=== PATIENT | male | born 1930 | race Two or more races ===

== ENCOUNTER 2018-03-14 15:33 | Inpatient (IN) | payer MEDICARE, MEDICAID ==
[~2018-03-14] VITALS: Ht 175.3 cm; Wt 67.6 kg
[2018-03-14] MEDS ORDERED: BUSP5TAB3 PO (15:53)
[2018-03-14] MEDS ORDERED: LORA1TAB PO (15:53)
--- NOTE | 2018-03-14 16:01 | NUR ---
PT IS IN ROOM #2A, WAITING FOR DR YOON EVALUATION.
[2018-03-14 16:41] LABS: *BLOOD, URINE NEGATIVE (NEGATIVE); *CLARITY,URINE CLEAR (CLEAR); *COLOR,URINE YELLOW (YELLOW); *KETONES,URINE TRACE (NEGATIVE); *PROTEIN,URINE NEGATIVE (NEGATIVE); LEUKOCYTE ESTERASE ,URINE NEGATIVE (NEGATIVE); NITRITE, URINE NEGATIVE (NEGATIVE); PH,URINE 5.5 (5.0-8.0); UGLUCOSE NEGATIVE (NEGATIVE)
[2018-03-14 16:45] LABS: EOSINOPHILS # (AUTO) 0.2 K/uL (0.0-0.7); EOSINOPHILS % (AUTO) 5.2 % (0.0-7.0); HEMATOCRIT 40.4 % (36.7-47.1); HEMOGLOBIN 13.1 g/dL (12.5-16.3); LYMPHOCYTES # (AUTO) 1.1 K/uL (20.0-40.0); LYMPHOCYTES % (AUTO) 24.9 % (20.5-51.5); MEAN CORPUSCULAR HEMOGLOBIN 28.1 uug (23.8-33.4); MEAN CORPUSCULAR HGB CONC 33 g/dL (32.5-36.3); MEAN CORPUSCULAR VOLUME 86.5 fL (73.0-96.2); MONOCYTES # (AUTO) 0.6 K/uL (2.0-10.0); MONOCYTES % (AUTO) 14.2 % (0.0-11.0); NEUTROPHILS # (AUTO) 2.3 K/uL (1.8-8.9); NEUTROPHILS % (AUTO) 54.7 % (38.5-71.5); PLATELET COUNT (AUTO) 128 K/uL (152-348); RED BLOOD CELL COUNT(AUTO) 4.67 MIL/uL (4.06-5.63); WHITE BLOOD COUNT (AUTO) 4.2 K/uL (3.6-10.2)
--- NOTE | 2018-03-14 16:45 | NUR ---
Call placed to Karl Caputo LCSW, for PET evaluation. ETA 60 min.
[2018-03-14 16:52] LABS: *BILIRUBIN,URIN 1+ (NEGATIVE)
[2018-03-14 16:55] LABS: *AMPHETAMINE, URINE NEGATIVE (NEGATIVE); *BARBITURATE, URINE NEGATIVE (NEGATIVE); *CANNABINOID, URINE NEGATIVE (NEGATIVE); *COCCAINE, URINE NEGATIVE (NEGATIVE); *OPIATE, URINE NEGATIVE (NEGATIVE); *PHENCYCLIDINE SCREEN,URINE NEGATIVE (NEGATIVE); BACTERIA,URINE 0 /HPF (NONE SEEN); MUCUS,URINE MODERATE /LPF (0-FEW); SQUAMOUS EPITHELIAL CELL,UR NONE SEEN /HPF (NONE SEEN); WBC,URINE 0-3 /HPF (0-3)
[2018-03-14 16:59] LABS: CARBON DIOXIDE 21 mmol/L (21-32); CHLORIDE 108 mmol/L (98-107); CREATININE 0.8 mg/dL (0.6-1.3); ETHANOL < 3 MG/DL (0-0); GLUCOSE 110 mg/dL (74-106); POTASSIUM 4.3 mmol/L (3.5-5.1); UREA NITROGEN, BLOOD 17 mg/dL (7-18)
[2018-03-14 17:05] LABS: ALANINE AMINOTRANSFERASE 30 U/L (16-63); ALKALINE PHOSPHATASE 132 U/L (50-136); ASPARTATE AMINOTRANSFERASE 28 U/L (15-37); BILIRUBIN,DIRECT 0.2 mg/dL (0.0-0.2); BILIRUBIN,TOTAL 0.5 mg/dL (0.2-1.0); TOTAL PROTEIN, SERUM 6.8 g/dL (6.4-8.2)
[2018-03-14 17:08] LABS: ACETAMINOPHEN < 2.0 ug/mL (10-30)
[2018-03-14] MEDS ORDERED: OLANZAPINE 5 MG TABLET PO ONE (17:15)
[2018-03-14] MEDS ORDERED: OLANZAPINE 5 MG TABLET ONE (17:35)
--- NOTE | 2018-03-14 18:21 | NUR ---
JOSÉ LUIS MORROW EVALUATED THE PT. PT IS ON HOLD A GRAVELY DISABLED.
--- NOTE | 2018-03-14 18:22 | NUR ---
REPORT WAS GIVEN TO RN MHU. PT WAS TRANSFERED TO ROOM #140A,
[2018-03-14 20:00] VITALS: BP 117/65
[2018-03-14] MEDS ORDERED: MAG HYDROX/AL HYDROX/SIMETH 30 ML LIQUID UDC PO PRN (21:00)
[2018-03-14] MEDS ORDERED: MAGNESIUM HYDROXIDE 30 ML LIQUID UDC PO PRN (21:00)
--- NOTE | 2018-03-14 22:00 | NUR ---
received to care, from the emergency room, on a 72 hour hold for gravely disabled, a transfer from [facility]. according to the hold, he was attempting to elope from his facility, and when staff attempted to redirect his behavior, he became agitated and combative. it also stated that he believed he was in a shoe store, when he was in the emergency room, and believes he is still living in his home where he lived for 45 years, although he has been at the [facility] and care, since last november. upon arrival, he was confused and disorganized. unable to provide information. his niece, ann-marie was helpful with interview. he was placed in bed at 2200. as of now, he remains awake. monitored closely for safety.
--- NOTE | 2018-03-14 23:23 | NUR ---
pt remains awake, and restless. assisted to bathroom multiple times. attempting to climb out of bed. difficult to redirect. bed alarm on, for safety. PRN restoril, given for insomnia.
[2018-03-14] MEDS: TEMAZEPAM 7.5 MG CAPSULE PO PRN (23:29)
[2018-03-15] MEDS: LORAZEPAM 1 MG TABLET PO PRN ×2 (01:32→09:47)
--- NOTE | 2018-03-15 01:32 | NUR ---
remains confused, restless, and agitated. continually tries to climb out of bed. assisted up in jonel chair for safety, and placed at nurses station, for monitoring. PRN ativan was given, at this time.
--- NOTE | 2018-03-15 06:00 | NUR ---
slept 1.0 hours. remains awake. appears restless, at times, but is more directable. no distress noted. will continue to monitor closely.
[2018-03-15 07:30] VITALS: BP 138/57
[2018-03-15] MEDS: ACETAMINOPHEN 325 MG TABLET PO PRN (10:09)
[2018-03-15] MEDS ORDERED: LORAZEPAM 2 MG/1 ML VIAL IM ONE (11:45)
[2018-03-15] MEDS ORDERED: HALOPERIDOL LACTATE 5 MG/1 ML VIAL IM ONE (11:45)
[2018-03-15 15:00] VITALS: BP 128/83
--- NOTE | 2018-03-15 15:24 | NUR ---
Initial Discharge Instructions: Patient currently resides at [facility] [[facility] [address] [place] [address]; [phone]]. Spoke with patient's niece, Lolis ([phone]) who reports she would like to collaborate with the MD regarding appropriate discharge disposition for the patient. SW will continue to speak with the pt, family, and MD regarding appropriate discharge plans. SW will form a safe and proper discharge plan.
[2018-03-15] MEDS: risperiDONE 0.5 MG TABLET PO SCH (21:00)
[2018-03-15] MEDS: RIVASTIGMINE TARTRATE 1.5 MG CAPSULE PO SCH (21:00)
[2018-03-15] MEDS: DIVALPROEX 250 MG TABLET.DR PO SCH (21:00)
[2018-03-15] MEDS ORDERED: HALOPERIDOL LACTATE 5 MG/1 ML VIAL IM STA (21:31)
[2018-03-15] MEDS ORDERED: LORAZEPAM 2 MG/1 ML VIAL IM STA (21:31)
--- NOTE | 2018-03-15 22:00 | NUR ---
received to care, lying in bed, asleep, no distress noted. 1;1 sitter at side, for safety. woke up at 2129, attempting to climb out of bed, striking out at staff, when redirected. he refused all medications. continued to be combative, when redirected. IM haldol 2 mg/ativan 1 mg was given at 2151, per MD orders. as of 2199, he remains agitated, up in jonel chair, for safety. sitter remains at side. will continue to monitor closely.
--- NOTE | 2018-03-15 22:40 | NUR ---
appears to be asleep. no distress noted.
[2018-03-16 02:20] VITALS: BP 130/70
[2018-03-16 07:30] VITALS: BP 134/52
[2018-03-16] MEDS: risperiDONE 0.5 MG TABLET PO SCH ×3 (08:27→16:56)
[2018-03-16] MEDS: RIVASTIGMINE TARTRATE 1.5 MG CAPSULE PO SCH ×2 (08:27→21:00)
[2018-03-16] MEDS: DIVALPROEX 250 MG TABLET.DR PO SCH ×3 (08:27→16:56)
[2018-03-16 16:33] VITALS: BP 117/52
--- NOTE | 2018-03-16 19:50 | NUR ---
RECEIVED PATIENT IN HIS ROOM IN BED ASLEEP; HOWEVER, HE IS EASILY AROUSABLE. PATIENT NOTED CALM AT THIS TIME. A/O X 1, UNCOOPERATIVE, POOR HISTORIAN, DELAYED SPEECH. BLUNTED AFFECT, IMPAIRED INSIGHT AND JUDGMENT IS NOTED. PATIENT CONTINUE ON 1:1 SUPERVISION FOR FALL/AWOL PRECAUTION. SAFETY WAS EMPHASIS. WILL CONTINUE TO MONITOR.
[2018-03-16 20:43] VITALS: BP 123/47
--- NOTE | 2018-03-16 21:55 | NUR ---
PATIENT WAS NOTED ANXIOUS, RESTLESS AND AGITATED. ATIVAN 1MG PO PRN WAS OFFERED; HOWEVER, PATIENT REFUSED. PT WILL CONTINUE ON 1:1 SUPERVISION. WILL CONTINUE TO MONITOR.
[2018-03-16] MEDS: LORAZEPAM 1 MG TABLET PO PRN (21:57)
--- NOTE | 2018-03-16 22:00 | NUR ---
PATIENT REFUSED EXELON 1.5MG PO QHS. MULTIPLE REDIRECTION GIVEN, INEFFECTIVE.
[2018-03-17] MEDS: LORAZEPAM 1 MG TABLET PO PRN ×3 (04:20→15:03)
--- NOTE | 2018-03-17 04:21 | NUR ---
PATIENT WOKE UP, HAD A BM AND VOIDED. HE WAS NOTED RESTLESS. ATIVAN 1MG PO PRN WAS GIVEN FOR AGITATION. WILL CONTINUE TO MONITOR.
--- NOTE | 2018-03-17 06:48 | NUR ---
PATIENT SLEPT FOR APPROX 5.30 HRS THROUGH THE NIGHT. NO AGGRESSIVE/COMBATIVE BX NOTED DURING THE SHIFT. COMPLIANT WITH ADLs. WILL CONTINUE TO MONITOR.
[2018-03-17 07:30] VITALS: BP 139/63
[2018-03-17] MEDS: risperiDONE 0.5 MG TABLET PO SCH ×3 (08:02→17:10)
[2018-03-17] MEDS: RIVASTIGMINE TARTRATE 1.5 MG CAPSULE PO SCH ×2 (08:02→21:00)
[2018-03-17] MEDS: DIVALPROEX 250 MG TABLET.DR PO SCH (08:03)
[2018-03-17] MEDS ORDERED: OLANZAPINE 10 MG VIAL IM ONE (11:00)
--- NOTE | 2018-03-17 11:11 | NUR ---
GPS/RN- Patient assisted with care this morning, sitting on toilet had bowel movement, when attempting to assist with care patient becoming combative, refusing to be cleaned, fisting and verbalizing he will hit staff, patient stated he is fine he does not need to be cleaned however is soiled with feces, after having bowel movement, patient becoming combative unable to safely clean at this time. Dr Torres on unit aware, Orders received for Chemical Restraint Zyprexa 5mg IM once, orders read back.
[2018-03-17 16:30] VITALS: BP 122/48
[2018-03-17] MEDS ORDERED: DIVALPROEX 250 MG TABLET.DR PO SCH (17:00)
[2018-03-17] MEDS: DIVALPROEX 500 MG TABLET.DR PO SCH (17:11)
--- NOTE | 2018-03-17 19:45 | NUR ---
RECEIVED PATIENT IN HIS ROOM IN BED ASLEEP; HOWEVER, HE IS EASILY AROUSABLE. PATIENT NOTED CALM AT THIS TIME. A/O X 1, POOR HISTORIAN, CONFUSED, DELAYED SPEECH. BLUNTED AFFECT, IMPAIRED INSIGHT AND JUDGMENT IS NOTED TO THE REASON FOR HIS ADMISSION TO [facility]HU. NO AGGRESSIVE OR COMBATIVE BX NOTED AT THIS TIME. PATIENT CONTINUE ON 1:1 SUPERVISION FOR FALL/AWOL PRECAUTION. SAFETY WAS EMPHASIS. WILL CONTINUE TO MONITOR.
[2018-03-17 20:30] VITALS: BP 114/57
--- NOTE | 2018-03-17 22:05 | NUR ---
PATIENT WAS NOTED SLEEPING AND REFUSED EXELON 1.5MG PO QHS. WILL CONTINUE TO MONITOR.
--- NOTE | 2018-03-18 06:34 | NUR ---
PATIENT SLEPT FOR APPROX 11.00 HR THROUGH THE NIGHT. PATIENT HAD A SHOWER THIS MORNING. NO AGGRESSIVE/COMBATIVE BX NOTED DURING THE SHIFT. WILL CONTINUE TO MONITOR.
[2018-03-18 07:30] VITALS: BP 130/45
[2018-03-18] MEDS: RIVASTIGMINE TARTRATE 1.5 MG CAPSULE PO SCH ×2 (08:23→21:00)
[2018-03-18] MEDS: risperiDONE 0.5 MG TABLET PO SCH ×3 (08:23→16:59)
[2018-03-18] MEDS: DIVALPROEX 500 MG TABLET.DR PO SCH ×2 (08:23→16:59)
[2018-03-18] MEDS ORDERED: PNEUMOCOCCAL 23-VAL P-SAC VAC 0.5 ML VIAL IM ONE (08:30)
[2018-03-18] MEDS: LORAZEPAM 1 MG TABLET PO PRN (09:24)
--- NOTE | 2018-03-18 11:40 | NUR ---
Firearms Report: Director Of Web Marketing completed and submitted [employer] Firearms Report on 03/18/18 for [employer] certification.
[2018-03-18 17:15] VITALS: BP 144/63
[2018-03-18 19:30] VITALS: BP 128/59
--- NOTE | 2018-03-18 22:00 | NUR ---
received to care, lying in bed, asleep, but easy to arouse, 1:1 sitter at side for safety. bedtime medications were held, due to pt being asleep. as of 2199, he remains asleep, in bed. sitter remains at side. no distress noted. will continue to monitor closely.
--- NOTE | 2018-03-19 02:00 | NUR ---
pt is now yellling, attempting to climb out of bed. refused PRN medications. sitter remains at side.
--- NOTE | 2018-03-19 03:00 | NUR ---
appears to be asleep. no distress noted.
--- NOTE | 2018-03-19 06:00 | NUR ---
slept 8.25 hours total. continues to sleep. no aggression noted. sitter remains at side. no distress noted.
[2018-03-19 07:30] VITALS: BP 168/80
[2018-03-19] MEDS: risperiDONE 0.5 MG TABLET PO SCH ×3 (08:03→17:08)
[2018-03-19] MEDS: RIVASTIGMINE TARTRATE 1.5 MG CAPSULE PO SCH ×2 (08:03→20:34)
[2018-03-19] MEDS: DIVALPROEX 500 MG TABLET.DR PO SCH ×2 (08:03→17:08)
[2018-03-19 15:39] VITALS: BP 114/48
[2018-03-19 19:30] VITALS: BP 114/40
[2018-03-19] MEDS: DOCUSATE SODIUM 100 MG CAPSULE PO SCH (20:59)
[2018-03-19] MEDS: TEMAZEPAM 7.5 MG CAPSULE PO PRN (21:27)
--- NOTE | 2018-03-19 22:30 | NUR ---
received to care, up in jonel chair, watching tv, 1:1 sitter at side for safety. compliant with medications and staff direction. PRN bernardino choi at 2126, for insomnia. as of 2229, he appears to be asleep. sitter remains at side. no distress noted. will continue to monitor closely.
[2018-03-20] MEDS: LORAZEPAM 1 MG TABLET PO PRN (00:49)
[2018-03-20] MEDS: ACETAMINOPHEN 325 MG TABLET PO PRN (00:49)
--- NOTE | 2018-03-20 00:49 | NUR ---
pt is very restless. attempting to climb out of bed frequently, requiring frequent redirection. PRN ativan was given at this time. sitter remains at side.
--- NOTE | 2018-03-20 07:03 | NUR ---
slept 7.0 hours total. assited with am care, and shower. no aggression noted. sitter remains at side. no distress noted.
[2018-03-20 07:30] VITALS: BP 126/53
[2018-03-20] MEDS: DIVALPROEX 500 MG TABLET.DR PO SCH ×2 (08:22→16:51)
[2018-03-20] MEDS: risperiDONE 0.5 MG TABLET PO SCH ×3 (08:22→16:52)
[2018-03-20] MEDS: RIVASTIGMINE TARTRATE 1.5 MG CAPSULE PO SCH ×2 (08:22→20:15)
[2018-03-20 15:00] VITALS: BP 130/50
[2018-03-20] MEDS: DOCUSATE SODIUM 100 MG CAPSULE PO SCH (20:15)
[2018-03-20 20:29] VITALS: BP 125/53
--- NOTE | 2018-03-21 04:31 | NUR ---
RECEIVED Pt IN BED SLEEPING, AROUSES EASILY. SOMEWHAT ANXIOUS AND IRRITABLE UPON AWAKENING. A+Ox1 TO SELF ONLY, Pt IS CONFUSED, DISORIENTED, AND DISORGANIZED. COMPLIANT WITH HS MEDICATIONS WITH PROMPTING, COOPERATIVE WITH STAFF DIRECTION. SNACK GIVEN AND CONSUMED 100%. EXHIBITS RESTRICTED AND BLUNTED AFFECT. ISOLATIVE TO HIS ROOM AND WITHDRAWN TO HIMSELF, ABLE TO MAKE NEEDS KNOWN. DENIES PAIN, VS STABLE. IN NO ACUTE DISTRESS, WILL CONTINUE TO MONITOR.
[2018-03-21 07:35] VITALS: BP 122/81
[2018-03-21] MEDS: RIVASTIGMINE TARTRATE 1.5 MG CAPSULE PO SCH ×2 (08:34→20:34)
[2018-03-21] MEDS: DIVALPROEX 500 MG TABLET.DR PO SCH ×2 (08:34→16:51)
[2018-03-21] MEDS: risperiDONE 0.5 MG TABLET PO SCH ×4 (08:35→20:35)
[2018-03-21] MEDS ORDERED: LORAZEPAM 2 MG/1 ML VIAL IM ONE (12:00)
[2018-03-21] MEDS ORDERED: HALOPERIDOL LACTATE 5 MG/1 ML VIAL IM ONE (12:00)
--- NOTE | 2018-03-21 12:06 | NUR ---
GPS/proof press operator- INCREASED AGITATIONS, RESTLESS, CALLING OUT, TRYING TO GET OUT OF HIS JAYLON-CHAIR, NOT REDIRECTABLE , SLIDING OUT OF HIS CHAIR, CALLING OUT FOR THE POLICE. CHARGE NURSE CALLED CALLED DR VERMA, ORDERS RECEIVED. HALDOL 2 MG IM AND ATIVAN 1 MG INJECTION, ADMINISTERED ORDERED TO HIS RIGHT DELTOID AREA.CONTINUE TO MONITOR BEHAVIOR, SAFETY EMPHASIZED
[2018-03-21 12:38] VITALS: BP 99/66
[2018-03-21 12:42] VITALS: BP 102/73
[2018-03-21 15:51] VITALS: BP 117/45
--- NOTE | 2018-03-21 17:22 | NUR ---
Gps/Chief Building Inspector-Lolis(Tomasa) called, wants to know progress of patient today, was informed of increased agitation this am, sliding from his jonel- chair, unable to direct patient. Confused, poor safety judgement. Giovana Rhodes from [facility] in to see patient and evaluate patient ,for appropriateness to her facility.Unable to ambulate patient and requested, patient was so drowsy/sleepy at this time.
[2018-03-21 20:22] VITALS: BP 108/48
[2018-03-21] MEDS: DOCUSATE SODIUM 100 MG CAPSULE PO SCH (20:34)
[2018-03-22 07:30] VITALS: BP 155/68
[2018-03-22] MEDS: risperiDONE 1 MG TABLET PO SCH (08:16)
[2018-03-22] MEDS: DIVALPROEX 500 MG TABLET.DR PO SCH ×2 (08:16→16:24)
[2018-03-22] MEDS: RIVASTIGMINE TARTRATE 1.5 MG CAPSULE PO SCH ×2 (08:16→20:47)
[2018-03-22] MEDS: risperiDONE 0.5 MG TABLET PO SCH ×2 (12:13→20:46)
--- NOTE | 2018-03-22 15:11 | NUR ---
Gps/Infection Control Rn-Patient's niece Steff called wants to find out if patient is gonna be here longer, and how was his progress,, informed to call oLlis who has the DPOA , informed unable to give information at this time.
[2018-03-22 17:42] VITALS: BP 105/48
[2018-03-22 20:00] VITALS: BP 147/51
[2018-03-22] MEDS: DOCUSATE SODIUM 100 MG CAPSULE PO SCH (20:47)
[2018-03-23] MEDS: LORAZEPAM 1 MG TABLET PO PRN (06:22)
[2018-03-23] MEDS: ACETAMINOPHEN 325 MG TABLET PO PRN (06:22)
--- NOTE | 2018-03-23 06:26 | NUR ---
Pt WOKE UP THIS MORNING RESTLESS AND ANXIOUS YELLING FOR POLICE AND MAKING NOISES. Pt WAS ATTEMPTING TO GET OUT OF BED, ASSISTED TO JAYLON-CHAIR FOR SAFETY. NURSE TALKED TO Pt TO CALM Pt DOWN. OFFERED AND GIVEN ATIVAN 1 MG PO PRN FOR RESTLESSNESS. WILL MONITOR FOR MEDICATION EFFECTIVENESS. Pt IN JAYLON-CHAIR WITH 1:1 SITTER NEXT TO Pt AT ALL TIMES. Pt HAS STOPPED YELLING AND IS SITTING CALMLY IN CHAIR.
[2018-03-23 07:30] VITALS: BP 122/48
[2018-03-23] MEDS: DIVALPROEX 500 MG TABLET.DR PO SCH ×2 (08:41→16:23)
[2018-03-23] MEDS: risperiDONE 1 MG TABLET PO SCH (08:41)
[2018-03-23] MEDS: RIVASTIGMINE TARTRATE 1.5 MG CAPSULE PO SCH ×2 (08:41→20:50)
[2018-03-23] MEDS: risperiDONE 0.5 MG TABLET PO SCH ×2 (13:02→20:50)
--- NOTE | 2018-03-23 14:47 | NUR ---
Gps/Supervisor Shaving And Splitting- Had been quiet, no agitation noted, remains on 1:1 nursing supervision for safety. Adequet intake, feeding self after set up.Stayed up on his jonel-chair.
[2018-03-23 16:00] VITALS: BP 103/47
[2018-03-23 20:38] VITALS: BP 108/52
[2018-03-23] MEDS: DOCUSATE SODIUM 100 MG CAPSULE PO SCH (20:50)
[2018-03-23] MEDS: TEMAZEPAM 7.5 MG CAPSULE PO PRN (21:53)
[2018-03-24] MEDS: RIVASTIGMINE TARTRATE 1.5 MG CAPSULE PO SCH ×2 (08:18→20:13)
[2018-03-24] MEDS: DIVALPROEX 500 MG TABLET.DR PO SCH ×2 (08:18→16:20)
[2018-03-24] MEDS: risperiDONE 1 MG TABLET PO SCH (08:18)
[2018-03-24 08:30] VITALS: BP 144/83
[2018-03-24] MEDS: risperiDONE 0.5 MG TABLET PO SCH ×2 (12:30→20:14)
[2018-03-24] MEDS: NYSTATIN SUSPENSION 5 ML LIQUID UDC PO SCH ×3 (12:36→20:14)
--- NOTE | 2018-03-24 12:46 | NUR ---
Gps/Coin Teller-White coated tongue still noted, encouraged good oral care , sitter was instructed good oral care . Anaya ByrneKOSHER DIETARY SERVICE SUPERVISOR in to see patient orders received for nystatin 5 ml, oral swish/swallow q 6 hrs., was started.
[2018-03-24 16:09] VITALS: BP 104/47
[2018-03-24] MEDS: DOCUSATE SODIUM 100 MG CAPSULE PO SCH (20:14)
[2018-03-24 20:24] VITALS: BP 115/57
[2018-03-25 07:30] VITALS: BP 145/66
[2018-03-25] MEDS: risperiDONE 1 MG TABLET PO SCH (09:45)
[2018-03-25] MEDS: RIVASTIGMINE TARTRATE 1.5 MG CAPSULE PO SCH (09:45)
[2018-03-25] MEDS: DIVALPROEX 500 MG TABLET.DR PO SCH (09:45)
[2018-03-25] MEDS: NYSTATIN SUSPENSION 5 ML LIQUID UDC PO SCH (09:45)
--- NOTE | 2018-03-25 09:59 | NUR ---
Discharge Note: Patient will be discharged to [facility] [[address] [place] [address]; [phone]] via ambulance. Spoke with Mya at the facility who states they are ready to accept the patient today. Spoke with patient's niece, Lolis ([phone]) who is aware and agreeable with discharge plans. Patient is alert and oriented x2 and is cooperative. Patient is not exhibiting any aggressive behaviors or agitation at this time. Patient will follow up at the facility with Dr. De La Cruz (Client Relation Specialist) and Dr. Lucero (Psychiatrist).
--- NOTE | 2018-03-25 12:48 | NUR ---
Pt is being discharged to [facility] via ambulance. Pt is A/o x2. No agitation. VS : BP 112/66, p 70, RR 16, O2 sat 98%. Pt is cooperative, no distress. Report was given to MONICA Brown. Pt is going to room 6A.
== END 2018-03-25 12:00 | DRG 885 ==
LOC: ER 15:38 → GPS 18:42
PROVIDERS: ADMIT Psychiatry & Neurology Psychiatry; ATTEND Internal Medicine
DX: F29 Unspecified psychosis not due to a substance or known physiological condition (principal); F03.91 Unspecified dementia, unspecified severity, with behavioral disturbance; D68.59 Other primary thrombophilia; F10.11 Alcohol abuse, in remission; Y90.9 Presence of alcohol in blood, level not specified; Z74.09 Other reduced mobility; D69.59 Other secondary thrombocytopenia; K76.9 Liver disease, unspecified; Z79.899 Other long term (current) drug therapy; Z81.8 Family history of other mental and behavioral disorders; F39 Unspecified mood [affective] disorder
CPT/HCPCS: 36415; 80164; 80307; 85025; 90732; 93005; 97110; 97116; 97530; A4663; G0480; G0480-TC; J1630; J2060; J2358; J3490